=== PATIENT | female | born 1955 | race African-American/Black ===

== ENCOUNTER → 2023-04-21 07:31 | Outpatient (REF) | payer BC, SELFPAY ==
[2023-04-21 08:09] LABS: % Basophils 0.8 % (0-2); % Eosinophils 1.5 % (0-6); % Immature Granulocytes 0.3 % (0-0.5); % Monocytes 9.2 % (1.7-9.3); % Neutrophils 42.2 % (42.2-75.2); Absolute Eosinophils 0.1 10^3/uL (0-0.7); Absolute Lymphocytes 1.8 10^3/uL (1.2-3.4); Absolute Monocytes 0.4 10^3/uL (0.1-0.6); Absolute Neutrophils 1.7 10^3/uL (1.4-6.5); Hematocrit 37.4 % (37.0-47.0); Hemoglobin 12.5 g/dL (12.0-16.0); Mean Corp Hgb Conc. 33.4 g/dL (33.0-37.0); Mean Corpuscular Hgb 24.1 pg (27.0-31.0); Mean Corpuscular Volume 72.1 fL (81.0-99.0); Mean Platelet Volume 9.2 fL (7.4-10.4); Nucleated Red Blood Cells % 0 %; Platelet Count 250 10^3/uL (130-400); Red Blood Cell Count 5.19 10^6/uL (4.20-5.40); Red Cell Dist. Width 14.3 % (11.5-14.5); White Blood Cell Count 3.9 10^3/uL (4.8-10.8)
[2023-04-21 08:46] LABS: ALT (SGPT) 23 U/L (0-35); AST (SGOT) 26 U/L (14-36); Albumin 4.4 g/dl (3.5-5.0); Alkaline Phosphatase 88 U/L (38-126); Blood Urea Nitrogen 11 mg/dl (7-17); Calcium 9.6 mg/dl (8.4-10.2); Carbon Dioxide 30 mmol/L (22-30); Chloride 104 mmol/L (98-107); Glucose 109 mg/dl (70-99); HDL Cholesterol 67 mg/dl; LDL Cholesterol, Calculated 62 mg/dl; Potassium 4.1 mmol/L (3.5-5.1); Sodium 138 mmol/L (135-145); Total Bilirubin 0.8 mg/dl (0.2-1.3); Total Cholesterol 137 mg/dl (50-199); Total Protein 7.3 g/dl (6.3-8.2); Triglyceride 40 mg/dl (10-149); Very Low Density Lipoprotein 8 mg/dl (0-30); eGFR > 60.00
[2023-04-21 10:16] LABS: Microalbumin, Random Urine <0.6 mg/dl (0.6-1.7)
== END ==
LOC: REG 07:31
PROVIDERS: ATTENDING PHYSICIAN Physician Assistant Medical
DX: E11.69 Type 2 diabetes mellitus with other specified complication (principal); E78.5 Hyperlipidemia, unspecified; J45.20 Mild intermittent asthma, uncomplicated
CPT/HCPCS: 36415; 80053; 80061; 82043; 82570; 83036; 85025

== ENCOUNTER → 2023-08-22 14:29 | Outpatient (REF) | payer BC, SELFPAY | LOC: WDC 14:29 | PROVIDERS: ATTENDING PHYSICIAN Obstetrics & Gynecology Gynecology; FAMILY PHYSICIAN Physician Assistant Medical | DX: Z12.31 Encounter for screening mammogram for malignant neoplasm of breast (principal) | CPT/HCPCS: 77063; 77067 ==

== ENCOUNTER → 2023-10-22 07:57 | Outpatient (REF) | payer BC, SELFPAY ==
[2023-10-22 09:50] LABS: % Basophils 0.5 % (0-2); % Eosinophils 2.1 % (0-6); % Immature Granulocytes 0.2 % (0-0.5); % Monocytes 9.6 % (1.7-9.3); % Neutrophils 43.6 % (42.2-75.2); Absolute Eosinophils 0.1 10^3/uL (0-0.7); Absolute Lymphocytes 1.9 10^3/uL (1.2-3.4); Absolute Monocytes 0.4 10^3/uL (0.1-0.6); Absolute Neutrophils 1.9 10^3/uL (1.4-6.5); Hematocrit 36.8 % (37.0-47.0); Hemoglobin 12.3 g/dL (12.0-16.0); Mean Corp Hgb Conc. 33.4 g/dL (33.0-37.0); Mean Corpuscular Hgb 24.2 pg (27.0-31.0); Mean Corpuscular Volume 72.4 fL (81.0-99.0); Mean Platelet Volume 9.6 fL (7.4-10.4); Nucleated Red Blood Cells % 0 %; Platelet Count 248 10^3/uL (130-400); Red Blood Cell Count 5.08 10^6/uL (4.20-5.40); Red Cell Dist. Width 14.4 % (11.5-14.5); White Blood Cell Count 4.4 10^3/uL (4.8-10.8)
[2023-10-22 10:25] LABS: ALT (SGPT) 16 U/L (0-35); AST (SGOT) 25 U/L (14-36); Albumin 4.5 g/dl (3.5-5.0); Alkaline Phosphatase 84 U/L (38-126); Blood Urea Nitrogen 13 mg/dl (7-17); Calcium 9.8 mg/dl (8.4-10.2); Carbon Dioxide 26 mmol/L (22-30); Chloride 103 mmol/L (98-107); Glucose 116 mg/dl (70-99); HDL Cholesterol 61 mg/dl; LDL Cholesterol, Calculated 65 mg/dl; Potassium 4.6 mmol/L (3.5-5.1); Sodium 144 mmol/L (135-145); Total Bilirubin 0.6 mg/dl (0.2-1.3); Total Cholesterol 135 mg/dl (50-199); Total Protein 7.3 g/dl (6.3-8.2); Triglyceride 45 mg/dl (10-149); Very Low Density Lipoprotein 9 mg/dl (0-30); eGFR > 60.00
[2023-10-22 11:03] LABS: Glycohemoglobin (HgbA1c) 6.7 % (4.0-5.6)
== END ==
LOC: REG 07:57
PROVIDERS: ATTENDING PHYSICIAN Physician Assistant Medical
DX: Z00.00 Encounter for general adult medical examination without abnormal findings (principal); E11.69 Type 2 diabetes mellitus with other specified complication; E78.5 Hyperlipidemia, unspecified
CPT/HCPCS: 36415; 80053; 80061; 83036; 85025

== ENCOUNTER → 2024-01-31 06:25 | Day surgery (SDC) | payer BC, SELFPAY ==
[2024-01-31 07:21] LABS: Glucose - Point of Care 105 mg/dl (70-99)
== END ==
LOC: GI 06:25
PROVIDERS: ATTENDING PHYSICIAN Internal Medicine Gastroenterology
DX: D12.2 Benign neoplasm of ascending colon (principal); K63.5 Polyp of colon; Z86.0101 Personal history of adenomatous and serrated colon polyps
CPT/HCPCS: 45385; 88305; 82962

== ENCOUNTER 2024-04-09 11:20 | Emergency (ER) | payer BC, SELFPAY ==
[2024-04-09 11:24] VITALS: BP 171/93
[2024-04-09 11:50] LABS: % Basophils 0.7 % (0-2); % Eosinophils 1.3 % (0-6); % Lymphocytes 49.9 % (20.5-51.1); % Neutrophils 41.1 % (42.2-75.2); Absolute Eosinophils 0.1 10^3/uL (0-0.7); Absolute Lymphocytes 3.1 10^3/uL (1.2-3.4); Absolute Monocytes 0.4 10^3/uL (0.1-0.6); Absolute Neutrophils 2.5 10^3/uL (1.4-6.5); Hematocrit 36.8 % (37.0-47.0); Hemoglobin 12.6 g/dL (12.0-16.0); Mean Corp Hgb Conc. 34.2 g/dL (33.0-37.0); Mean Corpuscular Hgb 24.8 pg (27.0-31.0); Mean Corpuscular Volume 72.3 fL (81.0-99.0); Mean Platelet Volume 9.3 fL (7.4-10.4); Nucleated Red Blood Cells % 0 %; Platelet Count 271 10^3/uL (130-400); Red Blood Cell Count 5.09 10^6/uL (4.20-5.40); Red Cell Dist. Width 13.8 % (11.5-14.5); White Blood Cell Count 6.1 10^3/uL (4.8-10.8)
[2024-04-09 12:11] LABS: ALT (SGPT) 19 U/L (0-35); AST (SGOT) 22 U/L (14-36); Albumin 4.3 g/dl (3.5-5.0); Alkaline Phosphatase 94 U/L (38-126); Blood Urea Nitrogen 11 mg/dl (7-17); Calcium 9.8 mg/dl (8.4-10.2); Carbon Dioxide 32 mmol/L (22-30); Chloride 97 mmol/L (98-107); Glucose 217 mg/dl (70-99); Potassium 4.1 mmol/L (3.5-5.1); Sodium 134 mmol/L (135-145); Total Bilirubin 0.5 mg/dl (0.2-1.3); Total Protein 7.2 g/dl (6.3-8.2); eGFR > 60.00
[2024-04-09 12:19] LABS: Troponin I < 0.012 ng/ml
[2024-04-09 12:22] VITALS: BP 165/73
[2024-04-09 12:26] VITALS: BMI 25.8
[2024-04-09 12:41] LABS: TSH Reflex To Free T4 1.35 uIU/ml (0.47-4.68)
[2024-04-09 13:00] VITALS: BP 144/79
--- NOTE | 2024-04-09 13:16 | ED.GENMED ---
History of Present Illness
General
Chief Complaint: Chest Pain
Source: patient
Exam Limitations: none
Time Seen by Provider: 04/09/24 12:57
History of Present Illness
History of Present Illness:
68yoF with a history of type 2 diabetes, hyperlipidemia, and asthma presenting for evaluation of chest discomfort. 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 She got to work around 6:30 AM this morning and noticed a discomfort in the left
side of her chest which she describes as a tightness. The discomfort was mild and a 2/10 in severity. She thought her symptoms may be related to her asthma. One of the nurses checked her vital signs and her heart rate was elevated at 113 and her
blood pressure was 162/88. She was encouraged to go to the ED for evaluation. Patient's chest discomfort has since resolved but she has some mild discomfort in her neck region. She denies any diaphoresis, shortness of breath, dizziness, syncope,
vomiting, fevers, cough, leg swelling. She reports feeling the sensation of her heart beating for a while, at least several months. Of note, patient consumed beet root powder this morning for the first time.
Past History
Past History
ED Past Medical History: Asthma and NIDDM
ED Past Surgical History: Gynecological (Hysterectomy)
Social History
Tobacco: Non-smoker
Alcohol: Occasional
Personal:
Living: with family
Employment: Employed
Phy Exam
General Physical Exam
General Presentation: well appearing and no apparent distress
General age: appears stated age
General Skin: warm and dry
General Habitus: normal
General Mental: alert
ENT Exam
ENT Exam: normocephalic
Cardiovascular Exam
Cardiovascular Exam: no edema, no murmur, normal peripheral pulses (2+ radial pulses bilaterally) and tachycardia
Pulmonary Exam
Pulmonary Exam: lungs clear, no respiratory distress, no rales, no crackles, no rhonchi and no wheezing
Neurological Exam
Neurological Exam: alert
Denise Coma Scale
Eye Opening: Spontaneous
Verbal Response: Oriented
Motor Response: Obeys Commands
GCS Total Score: 15
Skin Exam
Skin Exam: normal color and warm/dry
Psychiatric Exam
Psychiatric Exam: normal mood/affect
Scores
Heart Score for Chest Pain Patients
STEMI patient?: No
History: Slightly or Non-Suspicious
ECG: Nonspecific Repolarization
Age: >/= 65 years
Risk Factors: 1 or 2 Risk Factors
Troponin: </= Normal Limit
Heart Score for Chest Pain Patients: 4
Heart Score Risk: 20.3% MACE over next 6 weeks
Course
Orders/Labs/Results
Orders:
Orders
04/09/24 11:20
Electrocardiogram (*1) Urgent
Reason for Study: Chest Pain
EKG- Treatment ONCE
04/09/24 11:35
Complete Blood Count/With Diff Urgent
Comprehensive Metabolic Panel Urgent
Magnesium Urgent
Comment: ADD
TSH Reflex To Free T4 Urgent
Troponin I Urgent
04/09/24 13:14
Cardiac Monitoring- Treatment ONCE
0.9% Sodium Chloride 1000 ml [Nss] 1,000 ml IV BOLUS
04/09/24 13:15
Add On- LAB Urgent
Tests Added?: magnesium
EKG- Treatment ONCE
CR Chest - 2 Views Urgent
Comment:
Reason For Exam: CP
04/09/24 13:23
D-Dimer Urgent
04/09/24 14:30
Electrocardiogram (*1) Urgent
Reason for Study: Chest Pain
04/09/24 14:36
Troponin I Urgent
Abnormal Lab Results
04/09/24
11:35
Hct 36.8 L %
(37.0-47.0)
MCV 72.3 L fL
(81.0-99.0)
MCH 24.8 L pg
(27.0-31.0)
Neutrophils % 41.1 L %
(42.2-75.2)
Sodium 134 L mmol/L
(135-145)
Chloride 97 L mmol/L
(98-107)
Carbon Dioxide 32 H mmol/L
(22-30)
Glucose 217 H mg/dl
(70-99)
04/09/24 11:35
04/09/24 11:35
Vital Signs
Initial and Last Documented VS:
Initial Vital Signs
Temp Pulse Resp BP Pulse Ox
98.4 F 121 18 171/93 100
04/09/24 11:24 04/09/24 11:24 04/09/24 11:24 04/09/24 11:24 04/09/24 11:24
Last Documented Vital Signs
Temp Pulse Resp BP Pulse Ox
98.4 F 99 15 165/85 99
04/09/24 11:24 04/09/24 15:30 04/09/24 15:30 04/09/24 15:15 04/09/24 15:30
MDM/Problems Addressed
Differential Diagnosis Includes:
68yoF here with chest tightness that began this morning. Currently resolved. BP/HR elevated and she was sent to the ED for evaluation. BP 171/93 in triage. No prior history of hypertension. HR 121. Sinus tachycardia noted on the monitor. She is
well-appearing in no acute distress. Exam otherwise reassuring. Differential diagnosis includes but is not limited to: Dehydration, electrolyte abnormality, thyroid dysfunction, ACS, PE
Initial ED plan: Cardiac labs, TSH, and EKG obtained in triage. EKG shows sinus tachycardia with nonspecific ST changes. Troponin within normal limits. Glucose 217. TSH normal. Will check D-dimer, magnesium, delta troponin/EKG, and chest x-ray.
IV fluid bolus.
*EKG
Interpreted by ED Provider?: Yes
EKG Intrepretation Date: 04/09/24
Heart Rate: 121
Rate: tachycardiac
Rhythm: sinus
[place]: normal axis
Interval: normal interval
QRS Pattern: normal QRS
Ischemia: non-specific ST changes
*Critical Care Note
Total Time (30-74mins, 75-104mins- exclusive of procedures): Not Applicable
Update Note
Update Note:
D-dimer normal making PE very unlikely. Repeat EKG shows normal sinus rhythm with a heart rate of 86. ST/T wave changes resolved. Repeat troponin within normal limits. Chest x-ray is clear. Patient remains chest pain-free on reassessment and
heart rate improved. No indication for hospitalization at this time. She was advised to follow-up closely with her PCP. Strict ED return precautions discussed. Patient in agreement with plan and was discharged in stable condition.
ED Attending Note
-
Portions of this chart may have been created with voice recognition software.� Occasional wrong word or��sound alike� substitutions may have occurred due to the inherent limitations of voice recognition software.
Discharge Plan
Departure
Patient Disposition: Home (Routine Discharge)
Date of Disposition: 04/09/24
Time of Disposition: 15:27
Patient with high blood pressure during this ER visit?: Yes
Discharge Problem:
Chest pain, Elevated blood pressure reading
Instructions: Chest Pain PCP Follow Up
Prescriptions:
No Action
acetaminophen 325 MG tablet
325 mg PO PRN (Reason: arm pain)
calcium citrate-vitamin D3 [Citracal plus D] 1 TAB tablet
1 tab PO DAILY PRN (Reason: off n on)
albuterol sulfate 8.5 GM HFA aerosol inhaler
8.5 gm IH Q4 PRN (Reason: SOB, Wheezing) Qty: 1 0RF
Referrals:
Maddy Lua PA-C [Family Provider] -
Stand Alone Forms: Return to Work
Activity Restrictions/Additional Instructions:
Please call your family doctor tomorrow to schedule a follow-up appointment this week for blood pressure recheck. Return to the ER with any new or worsening symptoms.
Interventions
Interventions:
*Risk Screen - Suicide Last Done: 04/09/24 11:24
*General Assessment Last Done: 04/09/24 11:24
*Neglect/Abuse Screening Last Done: 04/09/24 11:24
ED- Fall Risk Assessment Last Done: 04/09/24 15:36
*ED COVID-19 Vaccine History Last Done: 04/09/24 15:36
*Nursing Disposition Last Done: 04/09/24 15:36
ED- Cardiac Assessment Last Done: 04/09/24 15:36
Discharge Date and Time
Discharge Date/Time: 04/09/24 15:41
Print Language: [id number]
[2024-04-09 13:38] LABS: Magnesium 1.9 mg/dl (1.6-2.3)
[2024-04-09] MEDS: NSS 1000 IV (13:38)
[2024-04-09 14:06] LABS: D-Dimer < 0.27 ug/mlFEU (0.00-0.50)
[2024-04-09 15:00] VITALS: BP 157/90
[2024-04-09 15:07] LABS: Troponin I < 0.012 ng/ml
[2024-04-09 15:15] VITALS: BP 165/85
== END 2024-04-09 15:41 | disposition home or self-care (01) ==
LOC: EMR 11:20
PROVIDERS: Emergency Medicine; Physician Assistant; EMERGENCY PHYSICIAN Student in an Organized Health Care Education/Training Program; FAMILY PHYSICIAN Physician Assistant Medical
DX: R07.89 Other chest pain (principal); R03.0 Elevated blood-pressure reading, without diagnosis of hypertension; E11.9 Type 2 diabetes mellitus without complications; E78.00 Pure hypercholesterolemia, unspecified; J45.909 Unspecified asthma, uncomplicated; Z90.710 Acquired absence of both cervix and uterus
CPT/HCPCS: 99283; 96360; 71046; 80053; 83735; 84443; 84484; 85025; 85379; 93005

== ENCOUNTER → 2024-08-22 14:26 | Outpatient (REF) | payer BC, SELFPAY | LOC: WDC 14:26 | PROVIDERS: ATTENDING PHYSICIAN Obstetrics & Gynecology Gynecology | DX: Z12.31 Encounter for screening mammogram for malignant neoplasm of breast (principal) | CPT/HCPCS: 77063; 77067 ==

== ENCOUNTER → 2024-11-08 06:43 | Outpatient (REF) | payer BC, SELFPAY ==
[2024-11-08 08:12] LABS: ALT (SGPT) 21 U/L (0-35); AST (SGOT) 22 U/L (14-36); Albumin 4.4 g/dl (3.5-5.0); Alkaline Phosphatase 79 U/L (38-126); Blood Urea Nitrogen 9 mg/dl (7-17); Calcium 9.8 mg/dl (8.4-10.2); Carbon Dioxide 29 mmol/L (22-30); Chloride 103 mmol/L (98-107); Glucose 117 mg/dl (70-99); HDL Cholesterol 68 mg/dl; LDL Cholesterol, Calculated 50 mg/dl; Potassium 4.6 mmol/L (3.5-5.1); Sodium 138 mmol/L (135-145); Total Protein 7.3 g/dl (6.3-8.2); Very Low Density Lipoprotein 9 mg/dl (0-30); eGFR > 60.00
[2024-11-08 08:14] LABS: Hematocrit 36.0 % (37.0-47.0); Hemoglobin 12.2 g/dL (12.0-16.0); Mean Corp Hgb Conc. 33.9 g/dL (33.0-37.0); Mean Corpuscular Volume 72.1 fL (81.0-99.0); Nucleated Red Blood Cells % 0 %; Platelet Count 256 10^3/uL (130-400); Red Cell Dist. Width 14.1 % (11.5-14.5)
[2024-11-08 08:20] LABS: Microalb - Urine Creatinine 72.800 mg/dl
[2024-11-08 08:43] LABS: TSH 1.40 uIU/ml (0.47-4.68)
[2024-11-08 09:46] LABS: Microalbumin, Random Urine <0.6 mg/dl (0.6-1.7)
[2024-11-08 11:48] LABS: Glycohemoglobin (HgbA1c) 6.7 % (4.0-5.6)
== END ==
LOC: REG 06:43
PROVIDERS: ATTENDING PHYSICIAN Physician Assistant Medical
DX: E11.69 Type 2 diabetes mellitus with other specified complication (principal); Z00.01 Encounter for general adult medical examination with abnormal findings; E78.5 Hyperlipidemia, unspecified
CPT/HCPCS: 36415; 80053; 80061; 82043; 82570; 83036; 84443; 85025